=== PATIENT | female | born 1980 | race Caucasian/White ===

== ENCOUNTER 2019-04-17 10:19 | Emergency (ER) | payer OTHER ==
[~2019-04-17] VITALS: Ht 180.3 cm; Wt 80.0 kg
[2019-04-17] MEDS ORDERED: MEDDOSEPAK PO (11:35)
[2019-04-17] MEDS ORDERED: PEPCID20 MG PO (11:35)
[2019-04-17] MEDS ORDERED: ELIMITE52 TOP (11:35)
[2019-04-17 11:46] VITALS: BP 147/98
== END 2019-04-17 11:54 | disposition home or self-care (01) ==
LOC: ED 10:19
DX: R21 Rash and other nonspecific skin eruption (principal); F17.210 Nicotine dependence, cigarettes, uncomplicated